=== PATIENT | female | born 1995 | race Caucasian/White ===

== ENCOUNTER 2020-03-04 19:10 | Emergency (ER) | payer OTHER ==
[~2020-03-04] VITALS: Ht 167.6 cm; Wt 65.3 kg
[2020-03-04 19:10] VITALS: Ht 167.6 cm; Wt 65.3 kg
[2020-03-04 20:24] LABS: AMPHETAMINE QUAL UR NONE DETECTED (See below)
[2020-03-04 23:00] VITALS: BP 125/81
== END 2020-03-04 23:00 | disposition home or self-care (01) ==
LOC: ED 19:10
PROVIDERS: Specialist
DX: S39.012A Strain of muscle, fascia and tendon of lower back, initial encounter (principal); S83.91XA Sprain of unspecified site of right knee, initial encounter; S80.11XA Contusion of right lower leg, initial encounter; V49.49XA Driver injured in collision with other motor vehicles in traffic accident, initial encounter; Y93.I9 Activity, other involving external motion; Y92.413 State road as the place of occurrence of the external cause; Y99.8 Other external cause status